=== PATIENT | female | born 1975 | race African-American/Black ===

== ENCOUNTER 2017-10-23 19:30 | Emergency (ER) | payer SELFPAY ==
[~2017-10-23] VITALS: Ht 157.5 cm; Wt 75.0 kg
[~2017-10-23 19:30] MED LIST: IBUP-232 PO
[2017-10-23 19:33] VITALS: BP 149/97; PULSE 104; RESP 18; TEMP 98.1; O2SAT 96
--- NOTE | 2017-10-23 19:43 | PD ---
HPI Chief Complaint: Pain: Acute or Chronic Time Seen by Provider: 19:41 Travel History International Travel<30 days: No Contact w/Intl Traveler<30days: No Traveled to known affect area: No History of Present Illness HPI 42-year-old female presents for evaluation of left leg pain. Symptoms started spontaneously 1 week ago. She describes it as a swelling sensation in her left thigh, left knee as well as the pain to the plantar aspect of left foot. Pain is worse when walking. She denies any injuries. Denies any numbness, tingling , back pain. No history of DVT or PE. No recent travel or surgery. No other complaints. PFSH Past Medical History ?: Not LMP: 09/25/2017 Tubal Ligation: Yes Social History Alcohol Use: Yes Tobacco Use: No Substance Use: Yes (cocaine occasional) Allergies-Medications (Allergen,Severity, Reaction): Coded Allergies: No Known Allergies (Verified Adverse Reaction, Unknown, 10/23/17) Reported Meds & Prescriptions Reported Meds & Active Scripts Active Review of Systems Except as stated in HPI: all other systems reviewed are Neg Physical Exam Narrative GENERAL: Well-developed well-nourished female no acute distress SKIN: Warm and dry. CARDIOVASCULAR: Regular rate and rhythm. No murmur appreciated. RESPIRATORY: No accessory muscle use. Clear to auscultation. Breath sounds equal bilaterally. GASTROINTESTINAL: Abdomen soft, non-tender, nondistended. Hepatic and splenic margins not palpable. MUSCULOSKELETAL: Nonspecific generalized tenderness to palpation of the left thigh and calf. There is no edema. There is no joint effusion. The patient maintains full range of motion of lower extremities. 2+ dorsalis pedis and posterior tibial pulses bilaterally. NEUROLOGICAL: Awake and alert. No obvious cranial nerve deficits. Motor grossly within normal limits. Normal speech. Data Data Last Documented VS Vital Signs Date Time Temp Pulse Resp B/P (MAP) Pulse Ox O2 Delivery O2 Flow Rate FiO2 10/23/17 19:33 98.1 104 18 149/97 (114) 96 Orders Orders Us Leg Venous Doppler (10/23/17 19:41) MDM Medical Decision Making Medical Screen Exam Complete: Yes Emergency Medical Condition: Yes Medical Record Reviewed: Yes Differential Diagnosis Leg strain, DVT, peripheral neuropathy, claudication, muscle spasm Narrative Course 42-year-old female presents with left leg pain and the sensation of swelling. There is no objective swelling. Peripheral pulses are intact. There is no obvious deformity. An ultrasound of the left lower extremity was obtained revealing no acute abilities. The patient is stable for discharge. Diagnosis Primary Impression: Left leg pain Additional Instructions: Take Tylenol or Motrin for pain per dosing instructions on the bottle. Follow- up with primary care physician in 1-2 weeks. Return for any emergent medical conditions. Med/Other Pt SpecificInfo: No Change to Meds Disposition: 01 DISCHARGE HOME Condition: Stable Danyel Givens Oct 23, 2017 19:43
--- NOTE | 2017-10-23 20:57 | RADRPT ---
EXAM DATE/TIME: 10/23/2017 20:35 [facility] COMPARISON: No previous studies available for comparison. INDICATIONS : Left leg pain. MEDICAL HISTORY : Substance abuse. Alcohol use. SURGICAL HISTORY : Tubal ligation. ENCOUNTER: Initial ACUITY: 1 day PAIN SCORE: 8/10 LOCATION: Left leg. TECHNIQUE: Venous ultrasound of the leg was performed from the inguinal ligament to the proximal calf. Real-adam e, color Doppler and spectral tracing, compression and augmentation techniques were used. FINDINGS: There is normal compressibility of the deep venous system from the inguinal region to the proximal ca lf. No echogenic clot is seen in the lumen of the common femoral, femoral, popliteal, and posterior tibial veins. There is a normal response of the venous system to proximal and distal augmentation an d respiration. CONCLUSION: Normal examination. Isaiah Maciel MD on October 23, 2017 at 20:55 Board Certified Radiologist. This report was verified electronically.
== END 2017-10-23 21:07 | disposition home or self-care (01) ==
LOC: NEPK 19:30
DX: M79.605 Pain in left leg (principal); F14.90 Cocaine use, unspecified, uncomplicated
CPT/HCPCS: 93971; 99284